=== PATIENT | male | born 1965 | race Caucasian/White ===

== ENCOUNTER → 2016-11-24 | Outpatient (REF) ==
[~2016-11-24] MED LIST: SYNTHROID 0.0.025 MG PO
== END ==
LOC: WSOH 10:57
DX: Z00.00 Encounter for general adult medical examination without abnormal findings (principal)

== ENCOUNTER → 2023-11-27 | Outpatient (CLI) | payer BC, OTHER ==
[~2023-11-27] MED LIST changes: +Acetaminophen 325 MG TAB PO PRN; +Famotidine 20 MG TAB PO SCH; +Ibuprofen 600 MG TAB PO PRN; +MOTRIN 600600 MG/TAB PO; +Morphine 4 MG/ML VIAL IV PRN; +NORCO 325 MG-51 TAB PO; +Ondansetron 4 MG/2 ML VIAL IV PRN
== END ==
LOC: COL.RAD 06:56
DX: C43.71 Malignant melanoma of right lower limb, including hip (principal)
CPT/HCPCS: A9520-JZ